=== PATIENT | female | born 1990 | race Two or more races ===

== ENCOUNTER 2022-05-07 18:49 | Emergency (ER) | payer MEDICAID ==
[~2022-05-07] VITALS: Ht 162.6 cm; Wt 63.0 kg
[2022-05-07 20:40] VITALS: BP 129/81
--- NOTE | 2022-05-07 20:40 | NUR ---
BIBS FOR BILATERAL SHOULDER PAIN UPON MOVEMENT. A/OX 3. TOLERATING R/A WELL WITH NO RESP DISTRESS. RR EVEN AND NON LABORED. AMBULATORY WITH STEADY GAIT. SAFETY MEASURES IN PLACE.
--- NOTE | 2022-05-07 20:55 | NUR ---
DR. NORMA NAM AT PT'S BEDSIDE
== END 2022-05-07 22:00 | disposition home or self-care (01) ==
LOC: ER 18:58
DX: M25.512 Pain in left shoulder (principal); M25.511 Pain in right shoulder
CPT/HCPCS: 73030-TC